=== PATIENT | male | born 1945 | race Caucasian/White ===

== ENCOUNTER 2020-01-22 09:36 | Inpatient (IN) | payer MEDICARE ==
[~2020-01-22] VITALS: Ht 182.9 cm; Wt 106.7 kg
[2020-01-22] VITALS (11 sets, daily range): BP systolic 108–141; BP diastolic 55–79
[2020-01-22 10:15] LABS: HEMATOCRIT 46.4 % (42.0-52.0); HEMOGLOBIN 15.5 g/dl (14.0-18.0); MEAN CORPUSCULAR HGB 29.4 pg (27.0-31.0); MEAN CORPUSCULAR HGB CONC 33.4 g/dl (33.0-37.0); MEAN PLATELET VOLUME 11.3 fl (9.6-12.3); PLATELET COUNT AUTOMATED 191 10*3/uL (130-400); RED BLOOD COUNT 5.27 10*6/uL (4.50-5.90); RED CELL DISTRI WIDTH 14.2 % (0-14.5); WHITE BLOOD COUNT 25.1 10*3/uL (4.8-10.8)
[2020-01-22 10:24] LABS: ACT PARTIAL THROMBO TIME 27.8 SECONDS (20.0-32.1); INTERNATIONAL NORM RATIO 1.1 (2.0-3.5)
[2020-01-22 10:33] LABS: BASOPHILS 1 % (0-1); PLATELET SUFFICIENCY NORMAL (NORMAL); TOTAL CELLS COUNTED 100 #CELLS
[2020-01-22 10:34] LABS: ALBUMIN 3.3 gm/dl (3.1-4.5); ALKALINE PHOSPHATASE 64 U/L (45-117); BUN 28 mg/dl (7-24); CHLORIDE 101 mmol/L (98-107); LIPASE 25 U/L (73-393); POTASSIUM 3.8 mmol/L (3.5-5.1); SGOT/AST 43 IU/L (3-35); SGPT/ALT 44 U/L (12-78); SODIUM 136 mmol/L (136-145); TOTAL PROTEIN 7.8 gm/dL (6.4-8.2)
[2020-01-22 10:35] LABS: TROPONIN I < 0.015 ng/ml (<0.045)
[2020-01-22 12:10] LABS: BILIRUBIN 1+ (NEGATIVE); BLOOD NEGATIVE (NEGATIVE); CLARITY SL CLOUDY (CLEAR); COLOR YELLOW (YELLOW); GLUCOSE NEGATIVE (NEGATIVE); KETONE 3+ (NEGATIVE); LEUKO ESTERASE NEGATIVE (NEGATIVE); NITRITE NEGATIVE (NEGATIVE)
[2020-01-22 12:15] LABS: BACTERIA 1+
[2020-01-22] MEDS ORDERED: OMEPRAZOLE MAGN20 MG PO (12:55)
[2020-01-22] MEDS ORDERED: SERTRALINE HYDR50 MG PO (12:56)
[2020-01-22] MEDS ORDERED: ZOCOR80 MG PO (12:56)
[2020-01-22] MEDS ORDERED: FISH OIL + D31 EACH PO (12:56)
[2020-01-22] MEDS ORDERED: MULTIVITAMINS1 EAC5 PO (12:57)
[2020-01-23] VITALS: BP 145/68
[2020-01-23 06:06] LABS: BASO % 0.1 % (0.0-1.0); EOS # 0.1 10*3/uL (0.0-0.4); EOS % 0.5 % (1.0-4.0); HEMATOCRIT 40.8 % (42.0-52.0); HEMOGLOBIN 13.7 g/dl (14.0-18.0); LYMPH # 1.2 10*3/uL (1.3-4.4); LYMPH % 7.6 % (27.0-41.0); MEAN CELL VOLUME 86.6 fl (80.0-94.0); MEAN CORPUSCULAR HGB 29.1 pg (27.0-31.0); MEAN CORPUSCULAR HGB CONC 33.6 g/dl (33.0-37.0); MEAN PLATELET VOLUME 11.3 fl (9.6-12.3); MONO # 1.4 10*3/uL (0.1-1.0); MONO % 9.3 % (3.0-9.0); NEUT # 12.6 10*3/uL (2.3-7.9); PLATELET COUNT AUTOMATED 190 10*3/uL (130-400); RED BLOOD COUNT 4.71 10*6/uL (4.50-5.90); RED CELL DISTRI WIDTH 14.2 % (0-14.5); WHITE BLOOD COUNT 15.3 10*3/uL (4.8-10.8)
[2020-01-23 06:22] LABS: ACT PARTIAL THROMBO TIME 27.9 SECONDS (20.0-32.1); INTERNATIONAL NORM RATIO 1.1 (2.0-3.5)
[2020-01-23 06:35] LABS: ALBUMIN 2.6 gm/dl (3.1-4.5); ALKALINE PHOSPHATASE 63 U/L (45-117); BUN 28 mg/dl (7-24); CHLORIDE 106 mmol/L (98-107); CHOLESTEROL 109 mg/dL (<200); CREATININE 1.31 mg/dL (0.70-1.30); FREE T4 1.33 ng/dl (0.76-1.46); HDL CHOLESTEROL 47 mg/dl (40-60); LDL CHOLESTEROL 44 mg/dL (9-159); PHOSPHOROUS 2.8 mg/dL (2.5-4.9); POTASSIUM 3.2 mmol/L (3.5-5.1); SGOT/AST 30 IU/L (3-35); SGPT/ALT 35 U/L (12-78); SODIUM 138 mmol/L (136-145); TOTAL PROTEIN 6.8 gm/dL (6.4-8.2); TRIGLYCERIDES 88 mg/dl (<150); VLDL CHOLESTEROL 18 mg/dL (6-40)
[2020-01-23 06:40] LABS: THYROID STIM HORMONE (HS) 0.497 uIU/ml (0.358-4.75)
[2020-01-23 07:36] LABS: VITAMIN D, 25-HYDROXY 25.1 ng/mL (30-100)
[2020-01-23 08:00] VITALS: BP 140/60
[2020-01-23 12:00] VITALS: BP 135/71
[2020-01-23 16:00] VITALS: BP 112/60
[2020-01-23 20:00] VITALS: BP 117/69
[2020-01-24] VITALS: BP 154/86
[2020-01-24 06:15] LABS: BASO % 0.2 % (0.0-1.0); EOS # 0.1 10*3/uL (0.0-0.4); EOS % 0.8 % (1.0-4.0); HEMATOCRIT 41.7 % (42.0-52.0); HEMOGLOBIN 13.5 g/dl (14.0-18.0); LYMPH # 1.2 10*3/uL (1.3-4.4); LYMPH % 8.6 % (27.0-41.0); MEAN CELL VOLUME 89.1 fl (80.0-94.0); MEAN CORPUSCULAR HGB 28.8 pg (27.0-31.0); MEAN CORPUSCULAR HGB CONC 32.4 g/dl (33.0-37.0); MEAN PLATELET VOLUME 11.1 fl (9.6-12.3); MONO # 1.3 10*3/uL (0.1-1.0); MONO % 9.5 % (3.0-9.0); NEUT # 10.7 10*3/uL (2.3-7.9); NEUT % 80.2 % (47.0-73.0); PLATELET COUNT AUTOMATED 213 10*3/uL (130-400); RED BLOOD COUNT 4.68 10*6/uL (4.50-5.90); RED CELL DISTRI WIDTH 14.5 % (0-14.5); WHITE BLOOD COUNT 13.3 10*3/uL (4.8-10.8)
[2020-01-24 06:49] LABS: BUN 26 mg/dl (7-24); CHLORIDE 110 mmol/L (98-107); CREATININE 0.96 mg/dL (0.70-1.30); POTASSIUM 3.7 mmol/L (3.5-5.1); SODIUM 142 mmol/L (136-145)
[2020-01-24 06:55] VITALS: BP 142/60
[2020-01-24 08:00] VITALS: BP 138/92
[2020-01-24 09:27] LABS: BILIRUBIN NEGATIVE (NEGATIVE); BLOOD 3+ (NEGATIVE); CLARITY SL CLOUDY (CLEAR); COLOR YELLOW (YELLOW); GLUCOSE NEGATIVE (NEGATIVE); KETONE NEGATIVE (NEGATIVE); LEUKO ESTERASE 2+ (NEGATIVE); NITRITE NEGATIVE (NEGATIVE); SPECIFIC GRAVITY 1.015 (1.005-1.030); UROBILINOGEN 0.2 E.U./dl (0.2-1.0); WBC 41-50 wbc/hpf (0-5)
[2020-01-24 09:28] LABS: BACTERIA 2+; MUCOUS 2+
[2020-01-24 12:00] VITALS: BP 132/59
[2020-01-24 16:00] VITALS: BP 148/77
[2020-01-24 20:00] VITALS: BP 140/65
[2020-01-25] VITALS: BP 146/72
[2020-01-25 08:00] VITALS: BP 144/72
[2020-01-25 12:00] VITALS: BP 119/77
[2020-01-25 16:00] VITALS: BP 144/73
[2020-01-25 20:00] VITALS: BP 126/71
[2020-01-26] VITALS: BP 156/78
[2020-01-26 08:00] VITALS: BP 130/66
[2020-01-26 12:00] VITALS: BP 136/79
== END 2020-01-26 14:37 | disposition other institution (70) | DRG 56 ==
LOC: ED → EDHOLD 15:39 → 4E 15:39
PROVIDERS: Internal Medicine; Nurse Practitioner Family; ADMIT Internal Medicine
DX: G91.2 (Idiopathic) normal pressure hydrocephalus (principal); G93.41 Metabolic encephalopathy; N17.9 Acute kidney failure, unspecified; E44.1 Mild protein-calorie malnutrition; N39.0 Urinary tract infection, site not specified; R73.9 Hyperglycemia, unspecified; E86.0 Dehydration; E83.41 Hypermagnesemia; R74.0 Nonspecific elevation of levels of transaminase and lactic acid dehydrogenase [LDH]; C44.319 Basal cell carcinoma of skin of other parts of face; E78.5 Hyperlipidemia, unspecified; F32.9 Major depressive disorder, single episode, unspecified; E87.6 Hypokalemia; Z68.31 Body mass index [BMI] 31.0-31.9, adult; Z87.891 Personal history of nicotine dependence; Z79.899 Other long term (current) drug therapy; Z82.49 Family history of ischemic heart disease and other diseases of the circulatory system; Z80.8 Family history of malignant neoplasm of other organs or systems; D72.829 Elevated white blood cell count, unspecified